=== PATIENT | female | born 1940 | race Caucasian/White ===

== ENCOUNTER 2019-03-23 18:04 | Inpatient (IN) | payer BC ==
[~2019-03-23] VITALS: Ht 152.4 cm; Wt 72.7 kg
[~2019-03-23 18:04] MED LIST: AML5T PO; ASPI-231 PO; ATE50T PO; Atorvastatin Calcium PO; BACL-63 PO; GABA300C10 PO; HYD25T PO; HYDR-4833 PO; HYDR2TAB58 PO; LEVO125T7 PO; LORA0.5T12 PO; NORT25CA PO; OMEP20CA74 PO; SULF500T37 PO
[2019-03-23 19:00] LABS: Basophils # (auto) 0 uL; Basophils % (auto) 0.5 % (0.0-2.0); Eosinophils # (auto) 0 uL; Eosinophils % (auto) 0.4 % (0.0-7.0); Hematocrit 27.3 % (36.0-46.0); Lymphocytes # (auto) 0.5 uL; Mean Corpuscular Hemoglobin 29.1 pg (28.0-32.0); Mean Corpuscular Hgb Conc. 33.1 g/dL (32.0-36.0); Mean Corpuscular Volume 88.2 fL (80.0-100.0); Monocytes # (auto) 0.4 uL; Monocytes % (auto) 5.5 % (0.0-12.0); Neutrophils % (auto) 87.6 % (37.0-80.0); Platelet Count (auto) 244 10^3/uL (140-450); Red Cell Distribution Width 15.5 % (11.8-14.3)
[2019-03-23 19:17] LABS: Albumin 2.6 g/dL (3.4-5.0); Anion Gap 9 (5-15); Blood Urea Nitrogen 35 mg/dL (7-18); Calcium 8.4 mg/dL (8.5-10.1); Carbon Dioxide 18 mmol/L (21-32); Chloride 112 mmol/L (98-107); Glucose 128 mg/dL (74-106); Sodium 139 mmol/L (136-145)
[2019-03-23 19:24] LABS: Alanine Aminotransferase 11 U/L (13-56); Alkaline Phosphatase 75 U/L (45-117); Aspartate Aminotransferase 16 U/L (15-37); Bilirubin, Total 0.3 mg/dL (0.2-1.0); GFR African American 38 mL/min; GFR Non-African American 31 mL/min
[2019-03-23] MEDS ORDERED: ACETAMINOPHEN 325 MG TAB PO ONE (19:30)
[2019-03-23] MEDS ORDERED: cefTRIAXone 1GM/50ML D5W 50 ML IV ONE (20:15)
[2019-03-23] MEDS ORDERED: SODIUM CHLORIDE 0.9% 2,250 ML IV ONE (20:15)
[2019-03-23 20:29] LABS: INR 0.95 (0.9-1.15); Partial Thromboplastin Time 33.5 sec (23.64-32.05)
[2019-03-23 21:15] LABS: Urine Bacteria MOD /hpf (None Seen); Urine Blood 2+ /uL (Negative); Urine WBC 2311 /hpf (0 - 5); Urine WBC Clumps PRESENT /hpf (None Seen)
[2019-03-23 21:22] LABS: Urine Specific Gravity 1.015 (1.001-1.035)
[2019-03-23] MEDS ORDERED: ONDANSETRON HCL 4 MG/2 ML VIAL IV PRN (23:00)
[2019-03-23] MEDS ORDERED: ACETAMINOPHEN 325 MG TAB PO PRN (23:00)
[2019-03-23] MEDS ORDERED: DOCUSATE SOD 100 MG CAP PO PRN (23:00)
[2019-03-23] MEDS ORDERED: FUROSEMIDE 20 MG/2 ML VIAL IV ONE (23:00)
[2019-03-23] MEDS ORDERED: TEMAZEPAM 15 MG CAP PO PRN (23:00)
[2019-03-23] MEDS ORDERED: HYDROcodone-ACET 5/325MG TAB PO PRN (23:15)
[2019-03-24] VITALS (7 sets, daily range): BP systolic 115–163; BP diastolic 50–86
[2019-03-24] MEDS ORDERED: traZODone HCL 50 MG TAB PO ONE
--- NOTE | 2019-03-24 00:29 | NUR ---
Telemetry admit from ER [facility],JOSEP MENDEZ admitted to Telemetry unit. Patient oriented to DARCY EDMONDS, RN primary RN, unit, room, bed, and unit policies regarding patient care and visiting hours. Patient now on continuous telemetry monitoring, tele box # [id number] and telemetry reading on arrival to unit is Nsr. Patient placed on bedside oxygen, weighed by bedscale and encouraged to call if they need something. All questions and concerns addressed, patient verbalized understanding. Bed in low position and call light within reach
--- NOTE | 2019-03-24 00:48 | NUR ---
Medication reconciliation Per patient daughter will bring list of home medications in the morning. per patient she can not remember what medications she takes at home. will inform dayshift RN.
--- NOTE | 2019-03-24 01:15 | NUR ---
PT REFUSED TO WEAR CPAP TONIGHT.
[2019-03-24] MEDS: DOXYCYCLINE 100MG/250ML 250 ML IV SCH ×3 (01:44→23:56)
[2019-03-24] MEDS: ALBUTEROL SULF 2.5 MG/0.5ML(0.5%) NEB SOLN NEB SCH ×3 (02:06→09:00)
[2019-03-24] MEDS: IPRATROPIUM BROM 0.5 MG/2.5ML INH SOL NEB SCH ×5 (02:06→18:52)
--- NOTE | 2019-03-24 06:06 | NUR ---
paged hospitalist for diet. patient has no diet ordered. informed hospitalist james cool. new order received to put patient on cardiac diet. orders read back and confirmed.
[2019-03-24] MEDS: PANTOPRAZOLE 40 MG TAB PO SCH (06:13)
[2019-03-24] MEDS: LEVOTHYROXINE SODIUM 112 MCG TAB PO SCH (06:13)
[2019-03-24] MEDS: hydrALAZINE HCL 25 MG TAB PO SCH ×3 (06:14→21:35)
[2019-03-24 06:27] LABS: Basophils # (auto) 0 uL; Basophils % (auto) 0.5 % (0.0-2.0); Eosinophils # (auto) 0 uL; Eosinophils % (auto) 0.5 % (0.0-7.0); Hematocrit 23.4 % (36.0-46.0); Hemoglobin 7.9 g/dL (12.2-16.2); Lymphocytes # (auto) 0.5 uL; Lymphocytes % (auto) 8.6 % (10.0-50.0); Mean Corpuscular Hemoglobin 29.5 pg (28.0-32.0); Mean Corpuscular Hgb Conc. 33.6 g/dL (32.0-36.0); Mean Corpuscular Volume 87.8 fL (80.0-100.0); Monocytes # (auto) 0.4 uL; Neutrophils % (auto) 84.4 % (37.0-80.0); Platelet Count (auto) 207 10^3/uL (140-450); Red Blood Cells 2.67 10^6/uL (4.0-5.20); Red Cell Distribution Width 15.4 % (11.8-14.3); White Blood Cell 5.9 10^3/uL (4.4-10.8)
[2019-03-24 06:48] LABS: BUN/Creatinine Ratio 21.4; Calcium 7.5 mg/dL (8.5-10.1); Potassium 3.3 mmol/L (3.5-5.1)
--- NOTE | 2019-03-24 07:22 | NUR ---
report given to moy allred
--- NOTE | 2019-03-24 07:30 | NUR ---
Opening Shift Note Assumed care of patient, awake, alert, and oriented x4. No S/S of distress/pain, but patient has labored breathing and is SOB, on 2L O2 nasal cannula. IV is 20 gauge asymptomatic, intact, patent, and saline locked. Granda catheter is patent and draining clear yellow urine to gravity. Bed is locked and in lowest position and call light is within reach. Instructed on POC and to call for assist PRN, and patient verbalized understanding to the best of her ability. Will continue to monitor for changes Q1hr and PRN.
[2019-03-24] MEDS: amLODIPine BESYLATE 5 MG TAB PO SCH (10:00)
[2019-03-24] MEDS: CARVEDILOL 3.125 MG TAB PO SCH ×2 (10:00→21:37)
[2019-03-24] MEDS: ASPirin-EC 81 mg tab PO SCH (10:26)
[2019-03-24] MEDS: ENOXAPARIN SOD 30 MG/0.3 ML SYRINGE SC SCH (10:27)
--- NOTE | 2019-03-24 12:12 | NUR ---
Daughter, Leticia Fajardo, at bedside; brought in copy of patient's Advanced Directive, and copy of history for the patient.
--- NOTE | 2019-03-24 12:20 | NUR ---
Dr. Francie MD, at bedside. New orders received.
[2019-03-24] MEDS ORDERED: SODIUM CHLORIDE 0.9% 1,000 ML IV SCH (13:15)
[2019-03-24] MEDS ORDERED: POTASSIUM CHL 20MEQ/100ML 100 ML IV ONE (13:15)
[2019-03-24] MEDS ORDERED: POTASSIUM CHL 20 Meq TABLET PO ONE (13:15)
[2019-03-24] MEDS: LEVALBUTEROL HCL 1.25 MG/3 ML NEB NEB SCH (18:51)
--- NOTE | 2019-03-24 19:20 | NUR ---
Opening Shift Note Assumed care of patient, awake and alert. No S/S of distress/SOB or pain. Instructed on POC and to call for assist PRN, will continue to monitor for changes Q1hr and PRN. Bed in low position and call light within reach.
[2019-03-24] MEDS: traZODone HCL 50 MG TAB PO SCH (21:34)
--- NOTE | 2019-03-24 21:45 | NUR ---
Provided patient with IS, educated patient on how to use IS, informed patient to use IS 10 times q hour. Patient verbalized understanding, refused to demonstrate back per patient " I am tired".
[2019-03-24] MEDS ORDERED: cefTRIAXone 1GM/50ML D5W 50 ML IV SCH (22:00)
--- NOTE | 2019-03-24 22:43 | NUR ---
Respiratory note: PT REFUSES TO WEAR CPAP AT THIS TIME
[2019-03-25] MEDS: LEVALBUTEROL HCL 1.25 MG/3 ML NEB NEB SCH ×4 (00:32→18:26)
[2019-03-25] MEDS: IPRATROPIUM BROM 0.5 MG/2.5ML INH SOL NEB SCH ×4 (00:32→18:26)
[2019-03-25 06:02] VITALS: BP 145/58
[2019-03-25] MEDS: PANTOPRAZOLE 40 MG TAB PO SCH (06:28)
[2019-03-25] MEDS: hydrALAZINE HCL 25 MG TAB PO SCH ×3 (06:28→21:46)
[2019-03-25] MEDS: LEVOTHYROXINE SODIUM 112 MCG TAB PO SCH (06:28)
[2019-03-25 06:53] LABS: Basophils # (auto) 0 uL; Eosinophils # (auto) 0.1 uL; Hematocrit 21.2 % (36.0-46.0); Lymphocytes # (auto) 0.6 uL; Monocytes # (auto) 0.2 uL; Platelet Count (auto) 184 10^3/uL (140-450); White Blood Cell 3.2 10^3/uL (4.4-10.8)
[2019-03-25 06:55] LABS: Eosinophils % (auto) 1.9 % (0.0-7.0); Mean Corpuscular Hemoglobin 29.2 pg (28.0-32.0); Mean Corpuscular Hgb Conc. 33.1 g/dL (32.0-36.0); Mean Corpuscular Volume 88.3 fL (80.0-100.0); Monocytes % (auto) 6.3 % (0.0-12.0); Neutrophils # (auto) 2.4 uL; Neutrophils % (auto) 72.8 % (37.0-80.0); Nucleated Red Blood Cells % 0.1 %; Red Cell Distribution Width 15.5 % (11.8-14.3)
[2019-03-25 07:05] LABS: Potassium 3.6 mmol/L (3.5-5.1)
--- NOTE | 2019-03-25 07:10 | NUR ---
Hospitalist called back. Informed hospitalist about critical lab value 7 HGb.. New orders received for type and screen and Transfuse 1 unit packed RBC. Orders read back and verified.will endorse care to moy VIZCARRA.
[2019-03-25 07:12] LABS: BUN/Creatinine Ratio 18.8; Calcium 7.5 mg/dL (8.5-10.1)
--- NOTE | 2019-03-25 07:30 | NUR ---
H/H=70./21.2 MD IS AWARE, PENDING CROSS AND MATCH AND TRANSFER 1 UNIT OF PRBC REPORTED BY THE COMMERCIAL DESIGNER RN.
--- NOTE | 2019-03-25 07:34 | NUR ---
Endorsed care to dayshift rn. informed rn of hgb and new orders for type and screen and to transfuse packed rbc 1 unit. all questions and concerns answered.
--- NOTE | 2019-03-25 08:00 | NUR ---
RECEIVED PATIENT ALERT AND ORIENTED, ON DNR STATUS, NOT IN DISTRESS, DIMINISHED LS IN BILATERAL LS, RR=18 SAT=97%, DEEP BREATHING, COUGHING AND INCENTIVE SPIROMETER ENCOURAGED, DEMONSTRATED AND VERBALIZED UNDERSTANDING WELL, SR R=75 ON TELE MONITOR, DENIED CHEST PAIN OR DISCOMFORT AT THIS MOMENT, ABDOMEN SOFT WITH ACTIVE BS, NO BM NOTED THIS MORNING, OLIVAS CATH IN PLACE AND PATENT, DRAINING CLOUDY YELLOW URINE, SKIN DRY AND INTACT, POSITION CHANGE ENCOURAGED WITH ASSISTANCE, TOLERATED WELL, RADIAL AND PEDAL PULSES PALPABLE, CAP REFILL<3 SECONDS, RESTING ON BED, HEAD OF BED ELEVATED, BED ON LOW POSITION, RAILS UP X2, CALL LIGHT ON REACH, PENDING SPUTUM CULTURE, ENCOURAGED TO COUGH AND SPIT, NO SPUTUM NOTED, SAMPLE CONTAINER AT THE BED SIDE, WILL CONTINUE MONITORING.
[2019-03-25 09:00] VITALS: BP 129/57
--- NOTE | 2019-03-25 09:00 | NUR ---
BLOOD LAB WAS CONTACTED FOR BLOOD TRANSFUSION FOLLOW UP, ORDER INCOMPLETE AND NEEDED TO CLARIFY BY MD REPORTED, WAITING FOR MD FOR FURTHER ORDERS, RESTING ON BED, DENIED PAIN OR DISCOMFORT AT THIS MOMENT.
[2019-03-25] MEDS: CARVEDILOL 3.125 MG TAB PO SCH ×2 (10:59→21:45)
[2019-03-25] MEDS: ASPirin-EC 81 mg tab PO SCH (10:59)
[2019-03-25] MEDS: amLODIPine BESYLATE 5 MG TAB PO SCH (11:00)
[2019-03-25] MEDS: ENOXAPARIN SOD 30 MG/0.3 ML SYRINGE SC SCH (11:00)
[2019-03-25] MEDS: DOXYCYCLINE 100MG/250ML 250 ML IV SCH (11:31)
[2019-03-25 13:00] VITALS: BP 134/51
--- NOTE | 2019-03-25 13:00 | NUR ---
DR. CLEO Thoams WAS CALLED FOR BLOOD ORDER AND LEFT A MESSAGE, WAITING FOR CALL BACK.
--- NOTE | 2019-03-25 14:51 | NUR ---
DR. TRINITY Thomas WAS CALLED FOR FOLLOW UP AND ORDER CLARIFICATION, LEFT A MESSAGE AND WAITING FOR CALL BACK.
--- NOTE | 2019-03-25 16:12 | NUR ---
ORDER CORRECTED Za shelley RN entered packed cell ordered under wrong section, patients hgb 7.0, dayshift RN Gara aware
[2019-03-25 17:00] VITALS: BP 143/73
[2019-03-25] MEDS ORDERED: LEVOFLOXACIN 500 MG TAB PO ONE ×2 (17:15→18:00)
[2019-03-25] MEDS ORDERED: ARTIFICIAL TEARS 15ml EACHEYE PRN (17:15)
[2019-03-25 18:07] LABS: Basophils # (auto) 0 uL; Eosinophils # (auto) 0.1 uL; Hemoglobin 7.1 g/dL (12.2-16.2); Lymphocytes # (auto) 0.5 uL; Monocytes # (auto) 0.2 uL; Neutrophils # (auto) 2.5 uL; White Blood Cell 3.3 10^3/uL (4.4-10.8)
[2019-03-25 18:09] LABS: Eosinophils % (auto) 1.9 % (0.0-7.0); Hematocrit 22.5 % (36.0-46.0); Lymphocytes % (auto) 15.5 % (10.0-50.0); Mean Corpuscular Hemoglobin 29.1 pg (28.0-32.0); Mean Corpuscular Hgb Conc. 31.7 g/dL (32.0-36.0); Mean Corpuscular Volume 91.8 fL (80.0-100.0); Monocytes % (auto) 6.3 % (0.0-12.0); Neutrophils % (auto) 75.3 % (37.0-80.0); Platelet Count (auto) 175 10^3/uL (140-450); Red Blood Cells 2.45 10^6/uL (4.0-5.20)
--- NOTE | 2019-03-25 20:00 | NUR ---
As per report by the kathia Brewer,no transfusion today,and to follow the communication order as per Dr. Marmolejo for the blood transfusion to monitor the hgb. at 0400.
--- NOTE | 2019-03-25 20:02 | NUR ---
NOT IN DISTRESS, TOLERATED DINNER TRAY WELL, ENSURE PO WAS PROVIDED ORDERED, DR. PETERSEN REPORTED AND FOLLOWED UP ABOUT BLOOD TRANSFUSION CLARIFICATION, ORDER DOCUMENTED FOR COMMUNICATION ORDERS, REPORT WAS GIVEN TO THE [employer] HELPER RN.
--- NOTE | 2019-03-25 20:05 | NUR ---
Opening Shift Note Assumed care of patient, awake and alert. No S/S of distress/SOB or pain. Instructed on POC and to call for assist PRN, will continue to monitor for changes Q1hr and PRN.Family at bedside.
[2019-03-25] MEDS: FLUTICASONE PROP NASAL SPR 0.05 % (50MCG) 16GM EACHNOSTRI SCH (21:21)
[2019-03-25] MEDS: traZODone HCL 50 MG TAB PO SCH (21:28)
[2019-03-25 22:00] VITALS: BP 133/57
--- NOTE | 2019-03-25 23:38 | NUR ---
Respiratory note: PT IS REFUSING TO WEAR CPAP AT THIS TIME. INFORMED PT OF THE BENEFITS OF CPAP, BUT PT STILL REFUSES. WILL CONTINUE TO MONITOR.
[2019-03-26] MEDS: LEVALBUTEROL HCL 1.25 MG/3 ML NEB NEB SCH ×3 (00:52→11:30)
[2019-03-26] MEDS: IPRATROPIUM BROM 0.5 MG/2.5ML INH SOL NEB SCH ×3 (00:52→11:30)
[2019-03-26 05:00] VITALS: BP 142/62
[2019-03-26] MEDS: LEVOTHYROXINE SODIUM 112 MCG TAB PO SCH (05:48)
[2019-03-26] MEDS: hydrALAZINE HCL 25 MG TAB PO SCH ×2 (05:49→14:40)
[2019-03-26] MEDS: PANTOPRAZOLE 40 MG TAB PO SCH (05:49)
[2019-03-26 06:02] LABS: Basophils # (auto) 0 uL; Basophils % (auto) 0.7 % (0.0-2.0); Eosinophils # (auto) 0.1 uL; Hematocrit 21.1 % (36.0-46.0); Hemoglobin 7.1 g/dL (12.2-16.2); Lymphocytes # (auto) 0.5 uL; Mean Corpuscular Hemoglobin 29.6 pg (28.0-32.0); Mean Corpuscular Hgb Conc. 33.7 g/dL (32.0-36.0); Mean Corpuscular Volume 87.8 fL (80.0-100.0); Monocytes # (auto) 0.2 uL; Monocytes % (auto) 6.3 % (0.0-12.0); Platelet Count (auto) 186 10^3/uL (140-450); Red Cell Distribution Width 15.2 % (11.8-14.3); White Blood Cell 2.7 10^3/uL (4.4-10.8)
[2019-03-26 06:15] LABS: BUN/Creatinine Ratio 17.6; Calcium 7.7 mg/dL (8.5-10.1); Potassium 4.1 mmol/L (3.5-5.1)
--- NOTE | 2019-03-26 07:25 | NUR ---
Report given to Maira Brewer, patient is resting no complaints made the whole night.
[2019-03-26] MEDS: Ensure HIGH Protein Chocolate 8oz Bottle PO SCH ×2 (08:00→12:00)
--- NOTE | 2019-03-26 08:00 | NUR ---
RECEIVED PATIENT ALERT AND ORIENTED, NOT IN DISTRESS, DIMINISHED LS IN BILATERAL LS, RR=18 SAT=96%, DEEP BREATHING, COUGHING AND INCENTIVE SPIROMETER ENCOURAGED, DEMONSTRATED AND VERBALIZED UNDERSTANDING WELL, SR R=96 ON TELE MONITOR, DENIED CHEST PAIN OR DISCOMFORT AT THIS MOMENT, ABDOMEN SOFT WITH ACTIVE BS, LARGE CONSISTENT DARK COLORED BM THIS MORNING REPORTED, OLIVAS CATH IN PLACE AND PATENT, DRAINING CLOUDY YELLOW URINE, SKIN DRY AND INTACT, POSITION CHANGE ENCOURAGED WITH ASSISTANCE, TOLERATED WELL, NONE PITTING EDEMA ON BILATERAL LOWER EXTRADITES NOTED, RADIAL AND PEDAL PULSES PALPABLE, CAP REFILL<3 SECONDS, RESTING ON BED, HEAD OF BED ELEVATED, BED ON LOW POSITION, RAILS UP X2, CALL LIGHT ON REACH, PENDING SPUTUM CULTURE, ENCOURAGED TO COUGH AND SPIT, NO SPUTUM OUT PUT NOTED, SAMPLE CONTAINER AT THE BED SIDE, H/H =7.1/21.1 REPORTED, NO BLOOD TRANSFUSION REQUIRED ORDERED ON COMMUNICATION ORDER BY DR. TRINITY Thomas WILL CONTINUE MONITORING.
[2019-03-26 08:42] VITALS: BP 107/67
--- NOTE | 2019-03-26 09:00 | NUR ---
PT CONTACTED FOR SERVICE FOLLOW UP, WILL SEE PATIENT SOON REPORTED.
[2019-03-26] MEDS ORDERED: LEVOFLOXACIN 250 MG TAB PO SCH (10:00)
[2019-03-26] MEDS: FLUTICASONE PROP NASAL SPR 0.05 % (50MCG) 16GM EACHNOSTRI SCH (10:47)
[2019-03-26] MEDS: CARVEDILOL 3.125 MG TAB PO SCH (10:48)
[2019-03-26] MEDS: ASPirin-EC 81 mg tab PO SCH (10:48)
[2019-03-26] MEDS: ENOXAPARIN SOD 30 MG/0.3 ML SYRINGE SC SCH (10:49)
[2019-03-26] MEDS: amLODIPine BESYLATE 5 MG TAB PO SCH (10:49)
--- NOTE | 2019-03-26 11:07 | NUR ---
MYNOR RENNY WAS CONTACTED FOR FOLLOW UP AND UPDATING PROCESS WITH [facility] REQUESTED BY DR. PETERSEN, SS VERBALIZED UNDERSTANDING AND WILL COMMUNICATE WITH THE DAUGHTER REPORTED.
[2019-03-26] MEDS ORDERED: LEVO250T19 PO (12:32)
[2019-03-26 13:00] VITALS: BP 134/61
--- NOTE | 2019-03-26 14:01 | NUR ---
PENDING D/C, SS WAS CONTACTED FOR FOLLOW UP AND TO COMMUNICATE WITH DAUGHTER, RESTING ON BED, NOT IN DISTRESS, DENIED PAIN, PENDING PT, WILL CONTINUE MONITORING.
--- NOTE | 2019-03-26 14:45 | NUR ---
OUT OF BED TO WITH PT, BACK TO THE BED, RESTING ON BED, NOT IN DISTRESS, DENIED PAIN, DAUGHTER AT BED SIDE, WILL CONTINUE MONITORING.
--- NOTE | 2019-03-26 16:29 | NUR ---
D/C Planning Per consult for Hospice. Information and choice letter was given to Pt daughter Leticia. Pt daughter requested [facility]. Pt verbalize understanding. Contacted [facility] Ph:) Fax:) faxed medical records. Per Dalia from [facility] referral has been received and service to start upon d/c day. Contacted [facility] Ph:) spoke to Gautam. Advised Gautam to arrange transportation between 17:00-18:00 via [employer] with 2l/min oxygen. Informed ZACKERY Granda. Addendum: 03/26/19 at 1634 by GREGORY HERRERA Amended: Links added.
[2019-03-26 16:39] VITALS: BP 126/67
--- NOTE | 2019-03-26 16:54 | NUR ---
PENDING D/C HOME WITH [facility], EDGE TRIMMER TIME AT [id number] PM BY [facility] REPORTED, DAUGHTER AT BED SIDE.
--- NOTE | 2019-03-26 17:03 | NUR ---
assessment Patient is a 78 year old female who is alert and oriented. Patients cognitive abilities are intact. Prior to admission patient lived home with caregivers and functioned with assistance. Per patient she will return home to her prior living arrangements post discharge. Patient informed me her PCP is Dr Alexander. Patient informed me she has a wheelchair for home use. Patient informed me she feels safe returning home on discharge. I informed patient she has a right to speak to a social service agency director regarding all care. I informed patient she has a right to participate in any and all discharge planning. Patient has a POA and advanced directive. Per patient her daughter Leticia is her POA. Patient verbalized understanding and agreed to discharge plan home. Addendum: 03/26/19 at 1706 by Rachel LOWE Amended: Links added.
--- NOTE | 2019-03-26 18:00 | NUR ---
D/C INSTRUCTIONS WERE GIVEN TO THE PATIENT AND DAUGHTERS, VERBALIZED UNDERSTANDING, FOLLOW UP WITH [facility] WAS GIVEN, POM FROM PHARMACY WAS GIVEN BACK, D/C OLIVAS CATH, TOLERATED WELL AND URINATED 15 MINUETS POST REMOVAL, D/C IV SITE AND TELE MONITOR, VS T=98.2 RR=18 SAT=97% P=76 UN=810/67, NOT IN DISTRESS AND DENIED PAIN, D/C HOME ON GURNEY BY [facility] ACCOMPANIED BY DAUGHTERS, TOOK ALL BELONGINGS AND LEFT NOTHING BEHIND.
[2019-03-26 18:09] VITALS: BP 131/61
== END 2019-03-26 18:00 | disposition hospice, home (50) | DRG 193 ==
LOC: EDBD 18:04 → ER 18:04 → TELE 18:05 → TELE-WESTW 03-24 00:43
PROVIDERS: ADMIT Nurse Practitioner Family; ATTEND Internal Medicine
DX: J18.9 Pneumonia, unspecified organism (principal); I50.43 Acute on chronic combined systolic (congestive) and diastolic (congestive) heart failure; I13.0 Hypertensive heart and chronic kidney disease with heart failure and stage 1 through stage 4 chronic kidney disease, or unspecified chronic kidney disease; N30.00 Acute cystitis without hematuria; E44.0 Moderate protein-calorie malnutrition; D50.8 Other iron deficiency anemias; N18.3 Chronic kidney disease, stage 3 (moderate); E87.6 Hypokalemia; E86.0 Dehydration; D63.8 Anemia in other chronic diseases classified elsewhere; E03.9 Hypothyroidism, unspecified; B96.20 Unspecified Escherichia coli [E. coli] as the cause of diseases classified elsewhere; I25.10 Atherosclerotic heart disease of native coronary artery without angina pectoris; I27.20 Pulmonary hypertension, unspecified; I48.91 Unspecified atrial fibrillation; K21.9 Gastro-esophageal reflux disease without esophagitis; E05.90 Thyrotoxicosis, unspecified without thyrotoxic crisis or storm; T50.1X5A Adverse effect of loop [high-ceiling] diuretics, initial encounter; M81.0 Age-related osteoporosis without current pathological fracture; Z66 Do not resuscitate; Z74.01 Bed confinement status; Z82.3 Family history of stroke; Z82.49 Family history of ischemic heart disease and other diseases of the circulatory system; Z83.3 Family history of diabetes mellitus; Z85.820 Personal history of malignant melanoma of skin; Z87.01 Personal history of pneumonia (recurrent); Z99.3 Dependence on wheelchair; Z79.899 Other long term (current) drug therapy; Y92.89 Other specified places as the place of occurrence of the external cause
CPT/HCPCS: 36415; 51702; 71045; 80048; 80053; 81001; 83605; 83880; 84443; 84484; 85025; 85610; 85730; 86850; 86870; 86900; 86901; 86922; 87040; 87077; 87086; 87088; 87186; 93005; 94640; 94761; 96365; 96375; 97163; G0378; J0696; J3480; J3490